=== PATIENT | female | born 1955 | race Caucasian/White ===

== ENCOUNTER 2020-02-09 11:00 | Outpatient (CLI) | payer MEDICARE, MEDICAID ==
[~2020-02-09 11:00] MED LIST: BACL10TA2 PO; CHLO25TA10 PO; CLIN150C2 PO; DIVA500T9 PO; ESTR0.5T29 PO; FLO0.4C PO; FLUO10CA30 PO; LACT1CAP26 PO; MEDR2.5T7 PO; PREG300C19 PO; PROM50TA3 PO
[2020-02-09] MEDS ORDERED: LIDOcaine 1%/PF 5ML 10 MG/ML VIAL ONE (11:41)
== END 2020-02-09 12:30 | disposition home or self-care (01) ==
LOC: WOUND CARE 11:00 → EDSTATUS 11:40 → WOUND CARE 12:30
PROVIDERS: ATTEND Nurse Practitioner
DX: T81.89XA Other complications of procedures, not elsewhere classified, initial encounter (principal); I12.9 Hypertensive chronic kidney disease with stage 1 through stage 4 chronic kidney disease, or unspecified chronic kidney disease; N18.9 Chronic kidney disease, unspecified; G47.33 Obstructive sleep apnea (adult) (pediatric); M79.89 Other specified soft tissue disorders; G35 Multiple sclerosis; F41.9 Anxiety disorder, unspecified; F32.9 Major depressive disorder, single episode, unspecified; Z79.899 Other long term (current) drug therapy; Z86.73 Personal history of transient ischemic attack (TIA), and cerebral infarction without residual deficits; Y83.8 Other surgical procedures as the cause of abnormal reaction of the patient, or of later complication, without mention of misadventure at the time of the procedure; Y92.238 Other place in hospital as the place of occurrence of the external cause
CPT/HCPCS: 97597

== ENCOUNTER 2020-02-17 12:15 | Outpatient (CLI) | payer MEDICARE, MEDICAID ==
[2020-02-17] MEDS ORDERED: LIDOcaine 2% 5ml jelly ONE (13:09)
== END 2020-02-17 23:59 | disposition home or self-care (01) ==
LOC: WOUND CARE 12:15
PROVIDERS: ATTEND Nurse Practitioner
DX: S61.201D Unspecified open wound of left index finger without damage to nail, subsequent encounter (principal); L98.492 Non-pressure chronic ulcer of skin of other sites with fat layer exposed; I12.9 Hypertensive chronic kidney disease with stage 1 through stage 4 chronic kidney disease, or unspecified chronic kidney disease; N18.9 Chronic kidney disease, unspecified; G40.802 Other epilepsy, not intractable, without status epilepticus; G47.33 Obstructive sleep apnea (adult) (pediatric); M79.89 Other specified soft tissue disorders; G35 Multiple sclerosis; F41.9 Anxiety disorder, unspecified; F32.9 Major depressive disorder, single episode, unspecified; Z79.899 Other long term (current) drug therapy; Z86.73 Personal history of transient ischemic attack (TIA), and cerebral infarction without residual deficits; V00-Y99 External causes of morbidity
CPT/HCPCS: G0463

== ENCOUNTER 2020-02-23 12:09 | Outpatient (CLI) | payer MEDICARE, MEDICAID ==
[2020-02-23] MEDS ORDERED: LIDOcaine 2% 5ml jelly ONE (12:20)
[2020-02-23 14:21] LABS: BASOPHILS % (AUTO) 0.6 % (0-1); EOSINOPHILS # (AUTO) 0.1 X10'3 (0-0.9); EOSINOPHILS % (AUTO) 1.7 % (0-6); LYMPHOCYTES # (AUTO) 1.5 X10'3 (1.1-4.8); LYMPHOCYTES % (AUTO) 28.4 % (21-51); MEAN CORPUSCULAR HGB CONC 32.9 g/dL (33.0-36.5); MEAN CORPUSCULAR VOLUME 94.2 FL (78-98); MEAN PLATELET VOLUME 8.1 FL (7.4-10.4); MONOCYTES # (AUTO) 0.5 X10'3 (0-0.9); MONOCYTES % (AUTO) 9.4 % (2-12); NEUTROPHILS # (AUTO) 3.1 X10'3 (1.8-7.7); NEUTROPHILS % (AUTO) 59.9 % (42-75); PRE OP HEMATOCRIT 36.2 % (35.0-45.0); PRE OP HEMOGLOBIN 11.9 g/dL (12.0-16.0); PRE OP PLATELET COUNT 153 X10'3 (140-440); RED BLOOD COUNT 3.85 X10'6 (4.20-5.60); RED CELL DISTRIBUTION WIDTH 14.8 % (11.5-14.5)
[2020-02-23 14:36] LABS: ALBUMIN 3.1 G/DL (3.4-5.0); ALBUMIN/GLOBULIN RATIO 0.7 (1.1-1.5); ALKALINE PHOSPHATASE 53 IU/L (46-116); BLOOD UREA NITROGEN 18 MG/DL (7-18); BUN/CREATININE RATIO 17.3 (6.6-38.0); C-REACTIVE PROTEIN 0.06 MG/DL (0.0-0.5); CALCIUM 8.8 MG/DL (8.5-10.1); CHLORIDE 105 MMOL/L (99-107); CREATININE 1.04 MG/DL (0.40-0.90); PRE OP ALT 13 U/L (30-65); PRE OP ANION GAP 9 (8-16); PRE OP AST 17 U/L (10-37); PRE OP BILIRUB, TOTAL 0.2 MG/DL (0.0-1.0); PRE OP GLUCOSE 75 MG/DL (70-104); PRE OP POTASSIUM 3.4 MMOL/L (3.4-5.1); PRE OP SODIUM 142 MMOL/L (135-145); TOTAL CARBON DIOXIDE 27.6 MMOL/L (24-32); TOTAL PROTEIN 7.6 G/DL (6.4-8.2); eGFR 53 ML/MIN
== END 2020-02-23 23:59 | disposition home or self-care (01) ==
LOC: WOUND CARE 12:09
PROVIDERS: ATTEND Nurse Practitioner
DX: S61.201D Unspecified open wound of left index finger without damage to nail, subsequent encounter (principal); L98.492 Non-pressure chronic ulcer of skin of other sites with fat layer exposed; I12.9 Hypertensive chronic kidney disease with stage 1 through stage 4 chronic kidney disease, or unspecified chronic kidney disease; N18.9 Chronic kidney disease, unspecified; G40.802 Other epilepsy, not intractable, without status epilepticus; G47.33 Obstructive sleep apnea (adult) (pediatric); M79.89 Other specified soft tissue disorders; G35 Multiple sclerosis; F41.9 Anxiety disorder, unspecified; F32.9 Major depressive disorder, single episode, unspecified; Z79.899 Other long term (current) drug therapy; Z86.73 Personal history of transient ischemic attack (TIA), and cerebral infarction without residual deficits; V00-Y99 External causes of morbidity
CPT/HCPCS: 36415; 73140; 80053; 85025; 85651; 86140; 87635; 93005; G0463

== ENCOUNTER 2020-03-01 10:51 | Day surgery (SDC) | payer MEDICARE, MEDICAID ==
[~2020-03-01] VITALS: Ht 170.2 cm; Wt 58.0 kg
[2020-03-01] VITALS (9 sets, daily range): BP systolic 128–156; BP diastolic 78–91
[~2020-03-01 10:51] MED LIST changes: -CLIN150C2 PO; -LACT1CAP26 PO; +cefazolin/dext.iso 2gm/50ml 50 ML IV ONE; +famotidine 20mg tablet PO ONE; +ringers solution, lacted 1,000 ML IV SCH
[2020-03-01] MEDS ORDERED: fentaNYL/PF 50MCG/1 ML 2ML syringe ONE (11:51)
[2020-03-01] MEDS ORDERED: midazolam 2 mg/2 ml injection ONE (11:51)
[2020-03-01] MEDS ORDERED: propofol inj 20 ML IV ONE (11:54)
[2020-03-01] MEDS ORDERED: BUPIVAcaine/PF 7.5mg/ml (0.75%) 10ml vial ONE (11:54)
[2020-03-01] MEDS ORDERED: LIDOcaine 1%/PF 5ML 10 MG/ML VIAL ONE (11:55)
[2020-03-01] MEDS ORDERED: ondansetron/PF 4mg/2ml inj ONE (12:15)
--- NOTE | 2020-03-01 12:45 | NUR ---
Received from OR via BED, accompanied by Anesthesiologist DR KIM--- and report given by Anesthesiolgist. PATIENT A&OX4, DENIES PAIN, V/S WNL, NEUROVASCULAR CHECKS INTACT, 20G PIV RUE, SCD ON, SPLINT DRESSING TO LEFT HAND CDI
[2020-03-01] MEDS ORDERED: ondansetron/PF 4mg/2ml inj IV PRN (13:00)
[2020-03-01] MEDS ORDERED: proCHLORperazine 10 MG/2 ml inj IV PRN (13:00)
[2020-03-01] MEDS ORDERED: ringers solution, lacted 1,000 ML IV SCH (13:00)
[2020-03-01] MEDS ORDERED: meperidine/PF 25mg/ml syringe IV PRN ×3 (13:00)
--- NOTE | 2020-03-01 13:55 | NUR ---
PATIENT A&OX4, DENIES PAIN, V/S WNL, NEUROVASCULAR CHECKS INTACT, 20G PIV RUE D/C, SCD OFF, SPLINT DRESSING TO LEFT HAND CDI. I HAVE REVIEWED D/C INSTRUCTIONS WITH PATIENT AND FAMILY AND THEY HAVE VERBALIZED UNDERSTANDING. PATIENT D/C HOME WITH ALL BELONGINGS AND FAMILY GAVE TRANSPORT HOME.PATIENT OFFERED MASK BUT REFUSED TO WEAR IT AT UPON D/C.
== END 2020-03-01 13:55 | disposition home or self-care (01) ==
LOC: PAS 10:51
PROVIDERS: ATTEND Orthopaedic Surgery
DX: I96 Gangrene, not elsewhere classified (principal); F31.9 Bipolar disorder, unspecified; G47.30 Sleep apnea, unspecified; M41.9 Scoliosis, unspecified; F41.9 Anxiety disorder, unspecified; I10 Essential (primary) hypertension; G35 Multiple sclerosis; D64.9 Anemia, unspecified; Z88.5 Allergy status to narcotic agent; Z79.899 Other long term (current) drug therapy; Z98.890 Other specified postprocedural states; Z86.14 Personal history of Methicillin resistant Staphylococcus aureus infection
CPT/HCPCS: 26951; 82948; A6222; J2250; J2405; J2704; J3010; J3490; J7120; A4215; A4618; A6449; A7000

== ENCOUNTER 2020-03-08 11:40 | Outpatient (CLI) | payer MEDICARE, MEDICAID ==
[~2020-03-08 11:40] MED LIST changes: -cefazolin/dext.iso 2gm/50ml 50 ML IV ONE; -famotidine 20mg tablet PO ONE; -ringers solution, lacted 1,000 ML IV SCH
[2020-03-08] MEDS ORDERED: LIDOcaine 2% 5ml jelly ONE (12:02)
== END 2020-03-08 23:59 | disposition home or self-care (01) ==
LOC: WOUND CARE 11:40
PROVIDERS: ATTEND Nurse Practitioner
DX: T81.89XA Other complications of procedures, not elsewhere classified, initial encounter (principal); L98.492 Non-pressure chronic ulcer of skin of other sites with fat layer exposed; I12.9 Hypertensive chronic kidney disease with stage 1 through stage 4 chronic kidney disease, or unspecified chronic kidney disease; N18.9 Chronic kidney disease, unspecified; G40.802 Other epilepsy, not intractable, without status epilepticus; G47.33 Obstructive sleep apnea (adult) (pediatric); M79.89 Other specified soft tissue disorders; I10 Essential (primary) hypertension; G35 Multiple sclerosis; F41.9 Anxiety disorder, unspecified; F32.9 Major depressive disorder, single episode, unspecified; Z79.899 Other long term (current) drug therapy; Z86.73 Personal history of transient ischemic attack (TIA), and cerebral infarction without residual deficits; Y83.8 Other surgical procedures as the cause of abnormal reaction of the patient, or of later complication, without mention of misadventure at the time of the procedure; Y92.234 Operating room of hospital as the place of occurrence of the external cause
CPT/HCPCS: 97597; G0463

== ENCOUNTER 2020-03-15 12:00 | Outpatient (CLI) | payer MEDICARE, MEDICAID ==
[2020-03-15] MEDS ORDERED: LIDOcaine 2% 5ml jelly ONE (12:26)
== END 2020-03-15 23:59 | disposition home or self-care (01) ==
LOC: WOUND CARE 12:00
PROVIDERS: ATTEND Nurse Practitioner
DX: T81.89XD Other complications of procedures, not elsewhere classified, subsequent encounter (principal); L98.492 Non-pressure chronic ulcer of skin of other sites with fat layer exposed; S61.201D Unspecified open wound of left index finger without damage to nail, subsequent encounter; I12.9 Hypertensive chronic kidney disease with stage 1 through stage 4 chronic kidney disease, or unspecified chronic kidney disease; N18.9 Chronic kidney disease, unspecified; G40.802 Other epilepsy, not intractable, without status epilepticus; G47.33 Obstructive sleep apnea (adult) (pediatric); M79.89 Other specified soft tissue disorders; G35 Multiple sclerosis; I25.10 Atherosclerotic heart disease of native coronary artery without angina pectoris; I73.01 Raynaud's syndrome with gangrene; F41.9 Anxiety disorder, unspecified; F32.9 Major depressive disorder, single episode, unspecified; Z86.73 Personal history of transient ischemic attack (TIA), and cerebral infarction without residual deficits; Z79.899 Other long term (current) drug therapy; Z98.51 Tubal ligation status; Z98.890 Other specified postprocedural states; Z86.14 Personal history of Methicillin resistant Staphylococcus aureus infection; W26.2XXD Contact with edge of stiff paper, subsequent encounter; Y83.8 Other surgical procedures as the cause of abnormal reaction of the patient, or of later complication, without mention of misadventure at the time of the procedure
CPT/HCPCS: G0463

== ENCOUNTER 2020-03-20 01:54 | Emergency (ER) | payer MEDICARE, MEDICAID ==
[~2020-03-20] VITALS: Ht 170.2 cm; Wt 61.8 kg
[2020-03-20] MEDS ORDERED: ondansetron 4mg rapidly disintigrating tab PO ONE (02:15)
[2020-03-20] MEDS ORDERED: ciprofloxacin 250mg tablet PO ONE (02:15)
[2020-03-20] MEDS ORDERED: CIP750T PO (02:33)
[2020-03-20] MEDS ORDERED: CLIN150C8 PO (02:34)
[2020-03-20 02:42] VITALS: BP 180/97
== END 2020-03-20 02:44 | disposition home or self-care (01) ==
LOC: ER 01:54
DX: T81.9XXD Unspecified complication of procedure, subsequent encounter (principal); M79.645 Pain in left finger(s); I25.10 Atherosclerotic heart disease of native coronary artery without angina pectoris; Z48.00 Encounter for change or removal of nonsurgical wound dressing; Z98.51 Tubal ligation status; Z88.5 Allergy status to narcotic agent; Z79.899 Other long term (current) drug therapy
CPT/HCPCS: 73140; 99283

== ENCOUNTER 2020-06-13 23:02 | Emergency (ER) | payer MEDICARE, MEDICAID ==
[~2020-06-13] VITALS: Ht 160 cm; Wt 54.5 kg
[~2020-06-13 23:02] MED LIST changes: +CLIN150C8 PO
[2020-06-13] MEDS ORDERED: LORazepam 2 mg/ml vial IV ONE (23:10)
[2020-06-13] MEDS ORDERED: LIDOcaine Viscous 15ml cup MM ONE (23:10)
[2020-06-13] MEDS ORDERED: ondansetron/PF 4mg/2ml inj IV ONE (23:10)
[2020-06-13] MEDS ORDERED: normal saline 1000ML IV soln IVB ONE (23:10)
[2020-06-13 23:44] LABS: BASOPHILS % (AUTO) 0.5 % (0-1); EOSINOPHILS % (AUTO) 0.6 % (0-6); HEMATOCRIT 34.9 % (35.0-45.0); HEMOGLOBIN 11.5 g/dl (12.0-16.0); LYMPHOCYTES # (AUTO) 1.1 X10'3 (1.1-4.8); LYMPHOCYTES % (AUTO) 22.1 % (21-51); MEAN CORPUSCULAR HEMOGLOBIN 29.2 PG (27.0-31.0); MEAN CORPUSCULAR HGB CONC 32.9 g/dL (33.0-36.5); MEAN CORPUSCULAR VOLUME 88.9 FL (78-98); MEAN PLATELET VOLUME 8.3 FL (7.4-10.4); MONOCYTES # (AUTO) 0.5 X10'3 (0-0.9); MONOCYTES % (AUTO) 10.5 % (2-12); NEUTROPHILS # (AUTO) 3.2 X10'3 (1.8-7.7); NEUTROPHILS % (AUTO) 66.3 % (42-75); PLATELET COUNT 218 X10'3 (140-440); RED BLOOD COUNT 3.93 X10'6 (4.20-5.60); RED CELL DISTRIBUTION WIDTH 13.3 % (11.5-14.5); WHITE BLOOD COUNT 4.8 X10'3 (4.5-11.0)
[2020-06-13 23:56] LABS: ALBUMIN 3.6 G/DL (3.4-5.0); ALBUMIN/GLOBULIN RATIO 0.8 (1.1-1.5); ALKALINE PHOSPHATASE 62 IU/L (46-116); ANION GAP 11 (8-16); ASPARTATE AMINO TRANSFERASE 32 U/L (10-37); BILIRUBIN,TOTAL 0.4 MG/DL (0.1-1.0); BLOOD UREA NITROGEN 45 MG/DL (7-18); BUN/CREATININE RATIO 34.4 (6.6-38.0); CALCIUM 10.2 MG/DL (8.5-10.1); CHLORIDE 102 MMOL/L (99-107); CREATININE 1.31 MG/DL (0.40-0.90); ETHANOL < 0.010 GM/DL (0.0-0.010); GLUCOSE 92 MG/DL (70-104); POTASSIUM 4.7 MMOL/L (3.5-5.1); SODIUM 139 MMOL/L (135-145); eGFR 41 ML/MIN
[2020-06-13 23:58] LABS: ALANINE AMINOTRANSFERASE < 6 U/L (12-78)
[2020-06-14 00:12] LABS: CLARITY,URINE CLEAR (Clear); COLOR,URINE YELLOW (Yellow); GLUCOSE, URINE NEGATIVE (Neg); KETONES,URINE TRACE mg/dl (Neg); NITRITES, URINE NEGATIVE (Neg); OCCULT BLOOD,URINE NEGATIVE (Neg); PROTEIN,URINE TRACE mg/dl (Neg); UA COLLECTION TYPE CLN CATCH MIDSTREAM; UROBILINOGEN,URINE 0.2 E.U/dL (0.2-1.0)
[2020-06-14 00:17] LABS: LEUKOCYTE ESTERASE ,URINE NEGATIVE (Neg)
[2020-06-14 00:19] LABS: BACTERIA,URINE 1+ /HPF (Neg); RBC,URINE 0-2 /HPF (0-2); SQUAMOUS EPITHELIAL CELL,UR MODERATE /LPF (FEW)
[2020-06-14 00:20] LABS: HYALINE CASTS 0-3 /LPF (NEGATIVE)
[2020-06-14 00:21] LABS: WBC,URINE 0-4 /HPF (0-4)
[2020-06-14] MEDS ORDERED: LIDO20SO16 PO (01:14)
--- NOTE | 2020-06-14 01:52 | NUR ---
Pt is currently too difficult to arouse. Will reasses shortly. Vitals stable and respirations even and unlabored.
--- NOTE | 2020-06-14 05:27 | NUR ---
PT awake and having spastic movement of extremities. Pt denies drug use, dialated pupils present, pt A&Ox4 with stable vitals. Pt movement twitching stops when pt becomes distracted by conversation.
[2020-06-14 05:58] VITALS: BP 170/96
== END 2020-06-14 07:16 | disposition home or self-care (01) ==
LOC: ER 23:02
DX: K12.0 Recurrent oral aphthae (principal); I25.10 Atherosclerotic heart disease of native coronary artery without angina pectoris; Z86.69 Personal history of other diseases of the nervous system and sense organs; Z98.51 Tubal ligation status; Z98.890 Other specified postprocedural states; Z88.5 Allergy status to narcotic agent; Z79.2 Long term (current) use of antibiotics; Z79.899 Other long term (current) drug therapy
CPT/HCPCS: 36415; 80053; 80320; 81001; 85025; 96361; 96374; 96375; 99284; J2060; J2405; J7030

== ENCOUNTER 2020-11-18 21:44 | Emergency (ER) | payer MEDICARE, MEDICAID ==
[~2020-11-18] VITALS: Ht 172.7 cm; Wt 79.0 kg
[~2020-11-18 21:44] MED LIST changes: +LIDO20SO16 PO
[2020-11-18 22:55] LABS: CLARITY,URINE CLOUDY (Clear); COLOR,URINE YELLOW (Yellow); GLUCOSE, URINE NEGATIVE (Neg); KETONES,URINE 15 mg/dl (Neg); LEUKOCYTE ESTERASE ,URINE LARGE (Neg); NITRITES, URINE POSITIVE (Neg); OCCULT BLOOD,URINE LARGE (Neg); PROTEIN,URINE 100 mg/dl (Neg); UROBILINOGEN,URINE 0.2 E.U/dL (0.2-1.0)
[2020-11-18 23:02] LABS: UA COLLECTION TYPE STRAIGHT CATH
[2020-11-18 23:03] LABS: URINE AMPHETAMINE SCREEN NEGATIVE (Neg); URINE BARBITUATE SCREEN NEGATIVE (Neg); URINE BENZODIAZEPINES SCREEN NEGATIVE (Neg); URINE CANNABINOID SCREEN NEGATIVE (Neg); URINE COCAINE SCREEN NEGATIVE (Neg); URINE METHADONE SCREEN NEGATIVE (Neg); URINE OPIATE SCREEN NEGATIVE (Neg); URINE PHENCYCLIDINE SCREEN NEGATIVE (Neg)
[2020-11-18 23:05] LABS: BACTERIA,URINE 3+ /HPF (Neg); MUCUS STRANDS NONE SEEN /LPF (Neg); SQUAMOUS EPITHELIAL CELL,UR FEW /LPF (FEW); WBC,URINE TNTC /HPF (0-4)
[2020-11-18] MEDS ORDERED: CefTRIAXone/D5W-Rocephin 1gm 50 ML IV ONE (23:05)
[2020-11-18] MEDS ORDERED: normal saline 1000ml 1,000 ML IV ONE (23:10)
[2020-11-18 23:19] LABS: BASOPHILS % (AUTO) 0.3 % (0-1); EOSINOPHILS # (AUTO) 0.1 X10'3 (0-0.9); EOSINOPHILS % (AUTO) 1.4 % (0-6); HEMATOCRIT 35.8 % (35.0-45.0); HEMOGLOBIN 11.9 g/dl (12.0-16.0); LYMPHOCYTES # (AUTO) 1.3 X10'3 (1.1-4.8); LYMPHOCYTES % (AUTO) 19.5 % (21-51); MEAN CORPUSCULAR HEMOGLOBIN 29.3 PG (27.0-31.0); MEAN CORPUSCULAR HGB CONC 33.2 g/dL (33.0-36.5); MEAN CORPUSCULAR VOLUME 88.4 FL (78-98); MONOCYTES # (AUTO) 0.8 X10'3 (0-0.9); MONOCYTES % (AUTO) 11.3 % (2-12); NEUTROPHILS # (AUTO) 4.5 X10'3 (1.8-7.7); NEUTROPHILS % (AUTO) 67.5 % (42-75); PLATELET COUNT 269 X10'3 (140-440); RED BLOOD COUNT 4.05 X10'6 (4.20-5.60); RED CELL DISTRIBUTION WIDTH 15.4 % (11.5-14.5); WHITE BLOOD COUNT 6.7 X10'3 (4.5-11.0)
--- NOTE | 2020-11-18 23:28 | NUR ---
pt can follow commands by is repeating nonsensical phrases over and over.
[2020-11-18 23:29] LABS: ALANINE AMINOTRANSFERASE 14 U/L (12-78); ALBUMIN 3.1 G/DL (3.4-5.0); ALBUMIN/GLOBULIN RATIO 0.6 (1.1-1.5); ALKALINE PHOSPHATASE 67 IU/L (46-116); ANION GAP 14 (8-16); ASPARTATE AMINO TRANSFERASE 15 U/L (10-37); BILIRUBIN,TOTAL 0.4 MG/DL (0.1-1.0); BLOOD UREA NITROGEN 23 MG/DL (7-18); BUN/CREATININE RATIO 21.3 (6.6-38.0); CALCIUM 9.2 MG/DL (8.5-10.1); CHLORIDE 106 MMOL/L (99-107); CREATININE 1.08 MG/DL (0.40-0.90); GLUCOSE 83 MG/DL (70-104); POTASSIUM 3.6 MMOL/L (3.5-5.1); SODIUM 141 MMOL/L (135-145); TOTAL CARBON DIOXIDE 21.3 MMOL/L (24-32); eGFR 51 ML/MIN
[2020-11-18 23:39] LABS: ETHANOL < 0.010 GM/DL (0.0-0.010); LIPASE 57 U/L (73-393)
[2020-11-19] MEDS ORDERED: ondansetron/PF 4mg/2ml inj IV PRN (00:25)
[2020-11-19] MEDS ORDERED: acetaminophen 650mg rectal suppository RC PRN (00:25)
[2020-11-19] MEDS ORDERED: diphenhydrAMINE 25mg capsule PO PRN (00:25)
[2020-11-19] MEDS ORDERED: bisacodyl 10mg suppository rectal RC PRN (00:25)
[2020-11-19] MEDS ORDERED: mag hydrox/Alum hydrox/simeth 30ml oral suspension PO PRN (00:25)
[2020-11-19] MEDS ORDERED: ondansetron 4mg rapidly disintigrating tab PO PRN (00:25)
[2020-11-19] MEDS ORDERED: HYDROcodone/acetaminophen 5mg/325mg tablet PO PRN (00:25)
[2020-11-19] MEDS ORDERED: morphine 2 MG/ML inj. syringe IV PRN ×2 (00:25)
[2020-11-19] MEDS ORDERED: acetaminophen 325mg tablet PO PRN ×2 (00:25)
[2020-11-19] MEDS ORDERED: magnesium hydroxide 30ml (MOM) UD suspension PO PRN (00:25)
[2020-11-19] MEDS: normal saline 1000ml 1,000 ML IV SCH ×3 (00:52→20:34)
[2020-11-19] MEDS: diphenhydrAMINE 50 mg/ml inj IV PRN ×2 (01:07→20:27)
[2020-11-19 02:22] LABS: HEMOGLOBIN A1C 5.5 % (4.5-6.2)
[2020-11-19 02:28] LABS: CREATINE KINASE 61 U/L (26-192); MAGNESIUM 2.2 MG/DL (1.5-2.4); PHOSPHORUS 1.4 MG/DL (2.3-4.5); VALPROATE 36 UG/ML (50-100)
[2020-11-19] MEDS ORDERED: Neutra Phos packet PO PRN (06:25)
[2020-11-19] MEDS ORDERED: sodium phosphate inj. 15 MMOL in dextrose 5%-water 250 ML IV PRN (06:25)
[2020-11-19] MEDS ORDERED: sodium phosphate inj. 30 MMOL in dextrose 5%-water 250 ML IV PRN (06:25)
[2020-11-19] MEDS: docusate sod 100mg capsule PO SCH ×2 (08:48→20:26)
[2020-11-19] MEDS: heparin, porcine 5000 units/ml vial SQ SCH ×2 (08:48→20:26)
--- NOTE | 2020-11-19 11:42 | NUR ---
pharmacy was called to mix sodium phosphate dose, pt's phosphorus is 1.4
[2020-11-19] MEDS ORDERED: FLUT16SP26 BOTHNARES (12:52)
[2020-11-19] MEDS ORDERED: PREG300C PO (12:52)
[2020-11-19] MEDS ORDERED: BACL5TAB PO (12:52)
[2020-11-19] MEDS ORDERED: CHLO25TA10 PO (12:52)
[2020-11-19] MEDS ORDERED: MOME45CR3 TOP (12:52)
[2020-11-19] MEDS ORDERED: INTE30SY IM (12:52)
[2020-11-19] MEDS ORDERED: ESTR0.5T PO (12:52)
[2020-11-19] MEDS ORDERED: FERR325T29 PO (12:52)
[2020-11-19] MEDS ORDERED: MEDR2.5T PO (12:52)
[2020-11-19] MEDS ORDERED: DIVA500T9 PO (12:52)
[2020-11-19] MEDS ORDERED: CARB1TAB36 PO (12:52)
--- NOTE | 2020-11-19 13:47 | NUR ---
PT IS EATING HER LUNCH.
[2020-11-19] MEDS: lactobacillus rhamnosus 10,000 MMU CELLS/CAPSULE PO SCH (20:26)
[2020-11-19] MEDS: carbidoba-levodopa 25-100mg tablet PO SCH (20:26)
[2020-11-19] MEDS: baclofen 10mg tablet PO SCH (20:38)
[2020-11-19] MEDS ORDERED: temazepam 15mg capsule PO PRN (21:00)
[2020-11-19] MEDS ORDERED: divalproex sod 250mg ER (24-hour) tablet PO SCH (21:00)
--- NOTE | 2020-11-19 21:52 | NUR ---
Positive blood culture: aerobic bottle positive for gram positive cocci in chains
[2020-11-19] MEDS ORDERED: CefTRIAXone/D5W-Rocephin 1gm 50 ML IV SCH (23:00)
[2020-11-20 04:00] VITALS: BP 175/93
[2020-11-20 07:53] LABS: BASOPHILS % (AUTO) 0.3 % (0-1); EOSINOPHILS # (AUTO) 0.1 X10'3 (0-0.9); EOSINOPHILS % (AUTO) 2.1 % (0-6); HEMATOCRIT 36.3 % (35.0-45.0); HEMOGLOBIN 11.8 g/dl (12.0-16.0); LYMPHOCYTES # (AUTO) 1.3 X10'3 (1.1-4.8); LYMPHOCYTES % (AUTO) 24.5 % (21-51); MEAN CORPUSCULAR HGB CONC 32.4 g/dL (33.0-36.5); MEAN CORPUSCULAR VOLUME 89.4 FL (78-98); MEAN PLATELET VOLUME 7.9 FL (7.4-10.4); MONOCYTES # (AUTO) 0.5 X10'3 (0-0.9); MONOCYTES % (AUTO) 9.3 % (2-12); NEUTROPHILS # (AUTO) 3.3 X10'3 (1.8-7.7); NEUTROPHILS % (AUTO) 63.8 % (42-75); PLATELET COUNT 234 X10'3 (140-440); RED BLOOD COUNT 4.07 X10'6 (4.20-5.60); RED CELL DISTRIBUTION WIDTH 15.6 % (11.5-14.5); WHITE BLOOD COUNT 5.1 X10'3 (4.5-11.0)
[2020-11-20] MEDS ORDERED: chlorthalidone 25mg tablet PO SCH (08:00)
[2020-11-20] MEDS ORDERED: pregabalin 75mg capsule PO SCH (08:00)
[2020-11-20] MEDS ORDERED: ferrous sulfate 325mg tablet PO SCH (08:00)
[2020-11-20] MEDS ORDERED: medroxyprogesterone acet. 2.5mg tablet PO SCH (08:00)
[2020-11-20 08:19] LABS: ALANINE AMINOTRANSFERASE 8 U/L (12-78); ALBUMIN 2.7 G/DL (3.4-5.0); ALBUMIN/GLOBULIN RATIO 0.6 (1.1-1.5); ALKALINE PHOSPHATASE 62 IU/L (46-116); ANION GAP 13 (8-16); ASPARTATE AMINO TRANSFERASE 38 U/L (10-37); BILIRUBIN,TOTAL 0.2 MG/DL (0.1-1.0); BLOOD UREA NITROGEN 14 MG/DL (7-18); BUN/CREATININE RATIO 19.4 (6.6-38.0); CALCIUM 8.5 MG/DL (8.5-10.1); CHLORIDE 107 MMOL/L (99-107); CREATININE 0.72 MG/DL (0.40-0.90); GLUCOSE 85 MG/DL (70-104); POTASSIUM 3.3 MMOL/L (3.5-5.1); SODIUM 142 MMOL/L (135-145); TOTAL CARBON DIOXIDE 21.8 MMOL/L (24-32); TOTAL PROTEIN 7.4 G/DL (6.4-8.2); eGFR 81 ML/MIN
--- NOTE | 2020-11-20 10:25 | NUR ---
PAGER ID: [phone] MESSAGE: ER room 16, Jacob Nicole RN. Pts some Kenneth came in to [facility] and said tht he is ok to take his mom home. he has to go back to work so he will try to call the brother. Son, had to leave to work, but OK with the DC to home.
[2020-11-20] MEDS ORDERED: LEVO500T89 PO (10:35)
[2020-11-20] MEDS: baclofen 10mg tablet PO SCH (10:47)
[2020-11-20] MEDS: lactobacillus rhamnosus 10,000 MMU CELLS/CAPSULE PO SCH (10:47)
[2020-11-20] MEDS: carbidoba-levodopa 25-100mg tablet PO SCH (10:48)
--- NOTE | 2020-11-24 14:26 | NUR ---
Case Management DC follow up: Spoke w/pt via telephone. s/p: ALOC, UTI, Met [facility]. Pt Reports: "Feeling ok, drinking lots of Pedialyte". Denies: Acute/continuous CP, emergent SOB, resp distress, orthopnea, dyspnea, N/V, hematemesis, weakness, vertigo, syncope episodes, orthostatic hypotension (educated on protocol as precaution), ISIDRO, blurry vision, s/s stroke/FAST, dysphagia, bladder pain, dysuria, polyuria, hematuria, retention, abd pain/distention, hematochezia, melena, unexplained bruising ("just wear the needle pokes were", bleeding, fever, chills. pt denies awareness of new Rx for Levaquin tabs to continue for 7 days after DC. Pt agrees to call her [facility] to confirm Rx and p-up. Pt agrees to call PCP, Rudi Piña if no Rx order and to ensure records have been sent over from most recent hospital stay. pt will also continues/resumes current Rx as ordered, denies ase r/t polypharmacy. Verbalizes compliance w/aftercare. Verbalizes understanding of s/s that warrant -11/ER visit for further evaluation. Pt acknowledges need to schedule/confirm/keep follow up appt w/PCP Cristiano Grijalva; will call to schedule & has appt set up w/new Neurologist in 2 wks. Needs met, questions/concerns addressed at DC; No further questions/concerns r/t recent hospital stay and/or DC status at this time.
== END 2020-11-20 18:37 | disposition home or self-care (01) ==
LOC: ER 21:46 → ED HOLD 11-19 00:22 → UNDOADMIN 11-19 00:22 → CANBEDREQ 11-20 11:42 → UNDODISIN 11-20 14:40 → ER 11-20 18:37
DX: N39.0 Urinary tract infection, site not specified (principal); Z20.822 Contact with and (suspected) exposure to COVID-19; N17.9 Acute kidney failure, unspecified; E86.0 Dehydration; G93.41 Metabolic encephalopathy; G40.909 Epilepsy, unspecified, not intractable, without status epilepticus; G35 Multiple sclerosis; R41.82 Altered mental status, unspecified
CPT/HCPCS: 36415; 70450; 71045; 80053; 80164; 80305; 80320; 81001; 82550; 83036; 83605; 83690; 83735; 83880; 84100; 84145; 84443; 85025; 87040; 87077; 87081; 87088; 87186; 87635; 95816; 96361; 96365; 96366; 96367; 96372; 96375; 99285; J0696; J1200; J1644; J7030; J7060; G0378

== ENCOUNTER 2021-03-31 12:03 | Emergency (ER) | payer MEDICARE, MEDICAID ==
[~2021-03-31] VITALS: Ht 170.2 cm; Wt 63.6 kg
[~2021-03-31 12:03] MED LIST changes: -BACL10TA2 PO; +BACL5TAB PO; +CARB1TAB36 PO; -CLIN150C8 PO; +ESTR0.5T PO; -ESTR0.5T29 PO; +FERR325T29 PO; -FLO0.4C PO; -FLUO10CA30 PO; +FLUT16SP26 BOTHNARES; +INTE30SY IM; -LIDO20SO16 PO; +MEDR2.5T PO; -MEDR2.5T7 PO; +MOME45CR3 TOP; +PREG300C PO; -PREG300C19 PO; -PROM50TA3 PO
[2021-03-31 12:54] VITALS: BP 163/95
[2021-03-31] MEDS ORDERED: ROPI0.5T4 PO (15:43)
== END 2021-03-31 16:09 | disposition home or self-care (01) ==
LOC: ER 12:04
DX: G25.81 Restless legs syndrome (principal); I11.9 Hypertensive heart disease without heart failure; Z76.0 Encounter for issue of repeat prescription; Z88.5 Allergy status to narcotic agent; Z79.899 Other long term (current) drug therapy
CPT/HCPCS: 99281; 99283